=== PATIENT | female | born 1955 | race Caucasian/White ===

== ENCOUNTER → 2025-08-18 | Outpatient (CLI) | payer OTHER ==
--- NOTE | 2025-08-19 09:38 | HMCIMG ---
EXAM: CT Cardiac calcium scoring. CLINICAL HISTORY: Screening. TECHNIQUE: Thin collimated axial CT cardiac images were obtained. A CT scan is done according to ALARA (As Low As Reasonably Achievable). CONTRAST: None. COMPARISON: None provided. FINDINGS: Calcium Score: VESSEL Number of lesions Volume mm3 Equi. Mass/mg Calcium score LM 0 0 - 0 LAD 3 1.8 - 2.2 LCX 0 0 - 0 RCA 0 0 - 0 Total 3 1.8 - 2.2 IMPRESSION: The total calcium score is 2.2. 44th percentile. /[place]
== END | disposition home or self-care (01) ==
LOC: RAH 13:53
PROVIDERS: ATTEND Family Medicine
DX: Z13.6 Encounter for screening for cardiovascular disorders (principal)
CPT/HCPCS: 75571